=== PATIENT | male | born 1950 | race Caucasian/White ===

== ENCOUNTER 2024-03-19 12:33 | Outpatient (CLI) | payer OTHER | END 2024-03-19 12:34 | disposition home or self-care (01) | LOC: BICMRI 12:33 | PROVIDERS: ATTEND Orthopaedic Surgery Hand Surgery | DX: S63.011A Subluxation of distal radioulnar joint of right wrist, initial encounter (principal); S63.591A Other specified sprain of right wrist, initial encounter; D16.9 Benign neoplasm of bone and articular cartilage, unspecified; S46.219A Strain of muscle, fascia and tendon of other parts of biceps, unspecified arm, initial encounter; S53.21XA Traumatic rupture of right radial collateral ligament, initial encounter; M67.833 Other specified disorders of tendon, right wrist; M25.431 Effusion, right wrist | CPT/HCPCS: 82565 ==

== ENCOUNTER 2024-03-28 07:55 | Outpatient (CLI) | payer OTHER ==
[2024-03-28 10:51] LABS: #Basophils 0.08 10x3/uL (0.0-0.2); #Eosinphils 0.19 10x3/uL (0.0-0.5); #Monocytes 0.82 10x3/uL (0.0-1.1); #Neutrophils 4.83 10x3/uL (1.5-8.4); %Eosinophils 2.3 % (0.0-6.0); %Lymphocytes 27.6 % (18.0-47.0); %Neutrophils 58.9 % (40.0-75.0); Hemoglobin 15.3 g/dL (13.5-17.5); Mean Corpuscular Hemoglobin 31.8 pg (27.0-33.0); Mean Corpuscular Volume 93.6 fL (81.2-95.1); Mean Platelet Volume 10.1 fL (7.4-10.4); Platelet Count 279 10x3/uL (150-450); RBC Distribution Width 11.4 % (11.5-14.5); Red Blood Cell (RBC) Count 4.81 10x6/uL (4.32-5.72); White Blood Cell (WBC) Count 8.2 10x3/uL (3.5-10.5)
[2024-03-28 11:18] LABS: Anion Gap 15 mmol/L (10-20); BUN (Urea Nitrogen) 24 mg/dL (8.4-25.7); Calc. Creatinine Clearance 0 mL/min (70-130); Calcium 9.4 mg/dL (7.8-10.44); Carbon Dioxide 25 mmol/L (23-31); Chloride 103 mmol/L (98-107); Estimated GFR 66; Glucose 116 mg/dL (83-110); Potassium 4.4 mmol/L (3.5-5.1); Sodium 139 mmol/L (136-145)
== END 2024-03-28 07:56 | disposition home or self-care (01) ==
LOC: LABBT 07:55
PROVIDERS: ATTEND Orthopaedic Surgery
DX: Z01.818 Encounter for other preprocedural examination (principal); S63.011A Subluxation of distal radioulnar joint of right wrist, initial encounter; S63.591A Other specified sprain of right wrist, initial encounter; D16.01 Benign neoplasm of scapula and long bones of right upper limb
CPT/HCPCS: 80048; 85025; 93005; 93010

== ENCOUNTER 2024-04-03 09:31 | Day surgery (SDC) | payer OTHER ==
[2024-03-28 08:19] VITALS: BMI 28.7
[2024-04-03] MEDS ORDERED: fentaNYL 50 mcg/mL 1 mL Vial ONE (10:23)
[2024-04-03] MEDS ORDERED: Midazolam HCl 2 mg/2 ml Vial ONE (10:23)
[2024-04-03] MEDS ORDERED: CEFAZOLIN 2 GM VIAL ONE (10:45)
[2024-04-03] MEDS ORDERED: Sodium Chloride 0.9% 100 ML ONE (10:45)
[2024-04-03] MEDS ORDERED: Bupivacaine HCl 0.5%/Epinephrine 1:200,000/PF 30 ml Vial ONE (10:52)
[2024-04-03] MEDS ORDERED: Bupivacaine PF 0.5% 30 ML VIAL ONE (10:53)
[2024-04-03] MEDS ORDERED: Lidocaine 1% (PF) 30 ML VIAL ONE (11:35)
[2024-04-03] MEDS ORDERED: fentaNYL PF 100 MCG/2 ML SYRINGE ONE (11:37)
[2024-04-03] MEDS ORDERED: Ondansetron PF 4 MG/2 ML Vial ONE (11:37)
[2024-04-03] MEDS ORDERED: PROPOFOL 20 ML ONE (11:37)
[2024-04-03] MEDS ORDERED: Lidocaine 1% PF 5 ML VIAL ONE (11:37)
[2024-04-03] MEDS ORDERED: Rocuronium Bromide 10 MG/ML (10ML VIAL) ONE (11:37)
[2024-04-03] MEDS ORDERED: Dexamethasone 4 mg/ml Vial ONE (11:37)
[2024-04-03] MEDS ORDERED: SUGAMMADEX SODIUM 200 MG/2 ML VIAL ONE (11:37)
[2024-04-03] MEDS ORDERED: Phenylephrine 10 MG/ML VIAL ONE (12:23)
== END 2024-04-03 15:35 | disposition home or self-care (01) ==
LOC: SDC 09:31
PROVIDERS: ATTEND Orthopaedic Surgery
PROC: 0LR Tendons, Replacement (ICD-10-PCS; principal; 2024-04-03)
DX: S46.211A Strain of muscle, fascia and tendon of other parts of biceps, right arm, initial encounter (principal); S63.011A Subluxation of distal radioulnar joint of right wrist, initial encounter; D16.9 Benign neoplasm of bone and articular cartilage, unspecified; S63.591A Other specified sprain of right wrist, initial encounter; I10 Essential (primary) hypertension; E11.9 Type 2 diabetes mellitus without complications; N40.0 Benign prostatic hyperplasia without lower urinary tract symptoms; I48.91 Unspecified atrial fibrillation; Z90.49 Acquired absence of other specified parts of digestive tract; Z90.79 Acquired absence of other genital organ(s); Z98.52 Vasectomy status; X50.0XXA Overexertion from strenuous movement or load, initial encounter; Z96.641 Presence of right artificial hip joint; Z79.899 Other long term (current) drug therapy; Z79.84 Long term (current) use of oral hypoglycemic drugs
CPT/HCPCS: 24342; 64415; 73070; A6223; C1713; J0665; J1100; J2001; J2250; J2371; J2405; J2704; J3010; J3490